=== PATIENT | female | born 1980 | race Caucasian/White ===

== ENCOUNTER 2017-02-09 12:12 | Emergency (ER) | payer OTHER ==
--- NOTE | 2017-02-09 13:07 | ERPHSYRPT ---
- History of Present Illness Time Seen by Provider: 02/09/17 13:03 Source: patient Patient Subjective Stated Complaint: HEADACHE, FEVER, SORE THROAT SINCE YESTERDAY Triage Nursing Assessment: AMBULATED TO ROOM PER SELF. STATES H/A, SORE THROAT AND COUGH SINCE YESTERDAY. TOOK MOTRIN TODAY WITH SOME RELIEF. Physician History: Pt. with temp. 100.2 F, sore throat, headache for 2 day. Taking ibuprofen with some relief. Also with dry cough, rhinorrhea, but no resp. difficulty. Son recently diagnosed with influenza B Timing/Duration: yesterday Cough Quality/Degree: mild, dry cough Possible Cause: occasional episodes Modifying Factors: Improves With: coughing (worsen) Associated Symptoms: fever, cough, nasal congestion, nasal drainage, sore throat , No shortness of breath International travel in last 2 weeks: No Allergies/Adverse Reactions: No Known Drug Allergies Allergy (Verified 02/09/17 12:31) Home Medications: Levothyroxine Sodium [Synthroid] 75 mcg PO DAILY 09/11/14 [History] Hx Tetanus, Diphtheria Vaccination/Date Given: No Hx Influenza Vaccination/Date Given: No Hx Pneumococcal Vaccination/Date Given: No Immunizations Up to Date: No - Review of Systems Constitutional: Fever, Malaise, No Chills Eyes: No Symptoms Ears, Nose, & Throat: Nose Congestion, Nose Discharge, Throat Pain Respiratory: Cough, No Dyspnea Cardiac: No Chest Pain, No Edema, No Syncope Abdominal/Gastrointestinal: No Abdominal Pain, No Nausea, No Vomiting, No Diarrhea Genitourinary Symptoms: No Dysuria Musculoskeletal: No Back Pain, No Neck Pain Skin: No Rash Neurological: No Dizziness, No Focal Weakness, No Sensory Changes Psychological: No Symptoms Endocrine: No Symptoms All Other Systems: Reviewed and Negative - Past Medical History Pertinent Past Medical History: Yes Neurological History: Migraines Endocrine Medical History: Hypothyroidism, Other Other Medical History: HYPOGLYCEMIA - Past Surgical History Past Surgical History: Yes Female Surgical History: Other Other Surgical History: D/C - Social History Smoking Status: Never smoker Exposure to second hand smoke: Yes Drug Use: none Patient Lives Alone: No - Female History Hx Last Menstrual Period: NOW - Nursing Vital Signs Nursing Vital Signs: Initial Vital Signs Temperature 99.2 F Temperature Source Oral Pulse Rate 98 Respiratory Rate 16 Blood Pressure [Right Arm] 114/74 Pain Intensity 4 - Physical Exam General Appearance: no apparent distress, alert Eye Exam: PERRL/EOMI, eyes nml inspection Ears, Nose, Throat Exam: normal ENT inspection, TMs normal, pharynx normal, moist mucous membranes, pharyngeal erythema Neck Exam: normal inspection, non-tender, supple, full range of motion Respiratory Exam: normal breath sounds, lungs clear, No respiratory distress Cardiovascular Exam: regular rate/rhythm, normal heart sounds Gastrointestinal/Abdomen Exam: soft, No tenderness Back Exam: normal inspection, No CVA tenderness, No vertebral tenderness Extremity Exam: normal inspection, normal range of motion Neurologic Exam: alert, 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, cooperative, normal mood/affect, sensation nml, No motor deficits Skin Exam: normal color, warm, dry, No rash Lymphatic Exam: No adenopathy SpO2: 99 Oxygen Delivery: Room Air - Progress Progress: improved Air Movement: good Counseled pt/family regarding: diagnosis - Departure Time of Disposition: 13:16 Departure Disposition: Home Clinical Impression: Viral syndrome Condition: Stable Critical Care Time: No Instructions: Headache, Viral Syndrome Additional Instructions: Motrin/Tylenol for OTC meds for fever/cough Encourage more fluids intake Return for worse fever, headache, sore throat, vomiting or any problems.
[2017-02-09 13:27] VITALS: BP 136/64; PULSE 89; O2SAT 100
== END 2017-02-09 13:27 | disposition home or self-care (01) ==
LOC: ED 12:12
DX: B34.9 Viral infection, unspecified (principal)
CPT/HCPCS: 99283

== ENCOUNTER 2019-01-23 17:30 | Emergency (ER) | payer OTHER ==
--- NOTE | 2019-01-23 18:01 | ERPHSYRPT ---
<MAGUE HARVEY PhillyJennifer - Last Filed: 01/23/19 20:54> - History of Present Illness Source: patient, other () Exam Limitations: no limitations Patient Subjective Stated Complaint: Pt states "A couple of hours ago my vision got really weird and the left side of my face went numb, my right arm with numb and my speech got slurred and I could not think straight." Triage Nursing Assessment: PT alert and oriented X 3, skin pwd Pt ambualtes with an upright steady gait, able to speak in full sentences, voice slightly slurred, left facial droop. Timing/Duration: hour(s) (3.5) Severity: severe Character of Deficits: altered sensation, impaired speech, Left Facial, RUE Baseline/Normal Cognition: alert 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 Current Cognition: alert 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 Baseline Gait: walks w/o assistance Associated Symptoms: slurred speech, vision changes Hx Tetanus, Diphtheria Vaccination/Date Given: Yes Hx Influenza Vaccination/Date Given: No Hx Pneumococcal Vaccination/Date Given: No Immunizations Up to Date: Yes <AC ARMENTA - Last Filed: 01/25/19 11:13> - History of Present Illness Time Seen by Provider: 01/23/19 17:40 Physician History: Pt and her state, they were watching TV at 14:30 PM, when she suddenly started c/o blurred vision, noticed her speech has changed, she became slurred, and she felt left facial and right arm numbness. She denies prior symptoms of headaches, chest pain, SOB, or dizziness, but she had mild generalized headaches afterward. She is able to ambulate without help, denies loss or vision or double vision, no severe headaches, naussea, vomiting, chest pain or otehr complaints. (AC ARMENTA) Allergies/Adverse Reactions: No Known Drug Allergies Allergy (Verified 02/09/17 12:31) Home Medications: Levothyroxine Sodium [Synthroid] 75 mcg PO DAILY 09/11/14 [History] - Review of Systems Constitutional: No Symptoms Eyes: Vision Changes Ears, Nose, & Throat: No Symptoms Respiratory: No Symptoms Cardiac: No Symptoms Abdominal/Gastrointestinal: No Symptoms Genitourinary Symptoms: No Symptoms Musculoskeletal: No Symptoms Skin: No Symptoms Neurological: Sensory Changes, Speech Changes Endocrine: No Symptoms All Other Systems: Reviewed and Negative <AC ARMENTA - Last Filed: 01/25/19 11:13> - Past Medical History Pertinent Past Medical History: Yes Neurological History: Migraines Endocrine Medical History: Hypothyroidism, Other Other Medical History: HYPOGLYCEMIA - Past Surgical History Past Surgical History: Yes Female Surgical History: Other Other Surgical History: D/C - Social History Smoking Status: Never smoker Exposure to second hand smoke: Yes Drug Use: none Patient Lives Alone: No - Female History Hx Last Menstrual Period: hysterectomy Hx Now: No <AC ARMENTA - Last Filed: 01/25/19 11:13> <MAGUE HARVEY PhillyJennifer - Last Filed: 01/23/19 20:54> - Alessia Coma Scale Best Eye Response ([place]): (4) open spontaneously Best Verbal Response ([place]): (5) oriented Best Motor Response (Alessia): (6) obeys commands [place] Total: 15 - Physical Exam General Appearance: no apparent distress Eye Exam: bilateral eye: PERRL, EOMI Ears, Nose, Throat Exam: normal ENT inspection, TMs normal, pharynx normal, moist mucous membranes Neck Exam: normal inspection, non-tender, supple, No carotid bruit, No JVD Respiratory: normal breath sounds, chest tenderness, lungs clear Cardiovascular: regular rate/rhythm, normal heart sounds, normal peripheral pulses, murmur Gastrointestinal: soft, normal bowel sounds, No tenderness Back Exam: normal inspection, No CVA tenderness, No vertebral tenderness, No rash Extremity Exam: normal inspection, No calf tenderness Peripheral Pulses: carotid (R): 3+, carotid (L): 3+, dorsalis-pedis (R): 3+, dorsalis-pedis (L): 3+ 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, 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, 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 Exam: normal hearing Coordination/Gait: normal finger to nose, normal gait, normal cerebellar function Motor/Sensory: no motor deficit DTR: bicep (R): 2+, bicep (L): 2+, tricep (R): 2+, tricep (L): 2+, knee (R): 2+ , knee (L): 2+, ankle (R): 2+, ankle (L): 2+ Skin Exam: normal color, warm, dry, No rash SpO2 Interpretation: normal SpO2: 100 O2 Delivery: Room Air <AC ARMENTA - Last Filed: 01/25/19 11:13> - Nursing Vital Signs Nursing Vital Signs: Initial Vital Signs Temperature 98.2 F 01/23/19 17:37 Pulse Rate 72 01/23/19 17:37 Respiratory Rate 18 01/23/19 17:37 Blood Pressure 133/68 01/23/19 17:37 O2 Sat by Pulse Oximetry 100 01/23/19 17:37 Pain Scale Pain Intensity 2 - Physical Exam Comments: NIH scale: 3. facial palsy, left facial sensory, dysarthria (AC ARMENTA) - Course Nursing assessment & vital signs reviewed: Yes EKG Interpreted by Me: RATE (63/min), NORMAL AXIS, NORMAL INTERVALS, NORMAL QRS , Non-specific ST Changes - CT Exams Head CT Interpretation: Negative, Tele-radiologist Report <AC ARMENTA - Last Filed: 01/25/19 11:13> Ordered Tests: Medication Summary Discontinued Medications Generic Name Dose Route Start Last Admin Trade Name Andreina PRN Reason Stop Dose Admin Aspirin 325 mg 01/23/19 19:53 01/23/19 20:11 Ecotrin 325 Mg PO 01/23/19 19:54 325 mg STAT ONE Administration Simvastatin 80 mg 01/24/19 10:00 01/23/19 20:11 Zocor 10mg PO 02/23/19 09:59 80 mg DAILY PAULA Administration Simvastatin Confirm 01/23/19 20:08 Zocor 10mg Administered 01/23/19 20:09 Dose 80 mg .ROUTE .[facility] ONE Lab/Rad Data: Laboratory Result Diagrams 01/23/19 18:24 01/23/19 18:24 Laboratory Results 01/23/19 01/23/19 01/23/19 Range/Units 19:34 19:34 18:24 WBC (4.0-10.5) K/mm3 RBC (4.1-5.4) M/mm3 Hgb (12.0-16.0) gm/dl Hct (35-47) % MCV (78-100) fl MCH (26-32) pg MCHC (32-36) g/dl RDW (11.5-14.0) % Plt Count (150-450) K/mm3 MPV (6-9.5) fl Gran % (36.0-66.0) % Eos # (Auto) (0-0.5) Absolute Lymphs (auto) (1.0-4.6) Absolute Monos (auto) (0.0-1.3) Lymphocytes % (24.0-44.0) % Monocytes % (0.0-12.0) % Eosinophils % (0.00-5.0) % Basophils % (0.0-0.4) % Absolute Granulocytes (1.4-6.9) Basophils # (0-0.4) ESR (0-20) mm/hr PT (9.95-12.35) SECONDS INR (0.8-3.0) APTT (25.3-37.0) SECONDS Sodium (137-145) mmol/L Potassium (3.5-5.1) mmol/L Chloride (98-107) mmol/L Carbon Dioxide (22-30) mmol/L Anion Gap (5-15) MEQ/L BUN (7-17) mg/dL Creatinine (0.52-1.04) mg/dL Estimated GFR ML/MIN Glucose (74-106) mg/dL Calcium (8.4-10.2) mg/dL Magnesium (1.6-2.3) mg/dL Total Bilirubin (0.2-1.3) mg/dL AST (14-36) U/L ALT (0-35) U/L Alkaline Phosphatase (38-126) U/L Creatine Kinase (30-135) U/L Troponin I < 0.012 (0.000-0.034) ng/mL Serum Total Protein (6.3-8.2) g/dL Albumin (3.5-5.0) g/dL Urine Color YELLOW (YELLOW) Urine Appearance CLOUDY (CLEAR) Urine pH 7.0 (5-6) Ur Specific [place] 1.026 (1.005-1.025) Urine Protein NEGATIVE (Negative) Urine Ketones TRACE (NEGATIVE) Urine Blood NEGATIVE (0-5) Bakari/ul Urine Nitrite NEGATIVE (NEGATIVE) Urine Bilirubin NEGATIVE (NEGATIVE) Urine Urobilinogen NEGATIVE (0-1) mg/dL Ur Leukocyte Esterase NEGATIVE (NEGATIVE) Urine WBC (Auto) 3-5 (0-5) /HPF Urine RBC (Auto) 0-2 (0-2) /HPF U Epithel Cells (Auto) NONE (FEW) /HPF Urine Bacteria (Auto) NONE (NEGATIVE) /HPF Unidentified Crystals 25-50 (NEGATIVE) /HPF Amorphous Crystals FEW (NEGATIVE) /HPF Urine Mucus (Auto) MODERATE (NEGATIVE) /HPF Urine Culture Reflexed NO (NO) Urine Glucose NEGATIVE (NEGATIVE) mg/dL Urine Opiates Level NEGATIVE (NEGATIVE) Ur Methadone NEGATIVE (NEGATIVE) Urine Barbiturates NEGATIVE (NEGATIVE) Ur Phencyclidine (PCP) NEGATIVE (NEGATIVE) Urine Amphetamine NEGATIVE (NEGATIVE) U Benzodiazepine Level NEGATIVE (NEGATIVE) Urine Cocaine NEGATIVE (NEGATIVE) Urine Marijuana (THC) NEGATIVE (NEGATIVE) 01/23/19 01/23/19 01/23/19 Range/Units 18:24 18:24 18:24 WBC (4.0-10.5) K/mm3 RBC (4.1-5.4) M/mm3 Hgb (12.0-16.0) gm/dl Hct (35-47) % MCV (78-100) fl MCH (26-32) pg MCHC (32-36) g/dl RDW (11.5-14.0) % Plt Count (150-450) K/mm3 MPV (6-9.5) fl Gran % (36.0-66.0) % Eos # (Auto) (0-0.5) Absolute Lymphs (auto) (1.0-4.6) Absolute Monos (auto) (0.0-1.3) Lymphocytes % (24.0-44.0) % Monocytes % (0.0-12.0) % Eosinophils % (0.00-5.0) % Basophils % (0.0-0.4) % Absolute Granulocytes (1.4-6.9) Basophils # (0-0.4) ESR 5 (0-20) mm/hr PT 11.4 (9.95-12.35) SECONDS INR 0.98 (0.8-3.0) APTT 27.5 (25.3-37.0) SECONDS Sodium 142 (137-145) mmol/L Potassium 4.3 (3.5-5.1) mmol/L Chloride 107 (98-107) mmol/L Carbon Dioxide 24 (22-30) mmol/L Anion Gap 14.9 (5-15) MEQ/L BUN 13 (7-17) mg/dL Creatinine 0.94 (0.52-1.04) mg/dL Estimated GFR > 60.0 ML/MIN Glucose 96 (74-106) mg/dL Calcium 9.7 (8.4-10.2) mg/dL Magnesium 2.2 (1.6-2.3) mg/dL Total Bilirubin 0.50 (0.2-1.3) mg/dL AST 17 (14-36) U/L ALT 11 (0-35) U/L Alkaline Phosphatase 64 (38-126) U/L Creatine Kinase 45 (30-135) U/L Troponin I (0.000-0.034) ng/mL Serum Total Protein 8.0 (6.3-8.2) g/dL Albumin 4.5 (3.5-5.0) g/dL Urine Color (YELLOW) Urine Appearance (CLEAR) Urine pH (5-6) Ur Specific [place] (1.005-1.025) Urine Protein (Negative) Urine Ketones (NEGATIVE) Urine Blood (0-5) Bakari/ul Urine Nitrite (NEGATIVE) Urine Bilirubin (NEGATIVE) Urine Urobilinogen (0-1) mg/dL Ur Leukocyte Esterase (NEGATIVE) Urine WBC (Auto) (0-5) /HPF Urine RBC (Auto) (0-2) /HPF U Epithel Cells (Auto) (FEW) /HPF Urine Bacteria (Auto) (NEGATIVE) /HPF Unidentified Crystals (NEGATIVE) /HPF Amorphous Crystals (NEGATIVE) /HPF Urine Mucus (Auto) (NEGATIVE) /HPF Urine Culture Reflexed (NO) Urine Glucose (NEGATIVE) mg/dL Urine Opiates Level (NEGATIVE) Ur Methadone (NEGATIVE) Urine Barbiturates (NEGATIVE) Ur Phencyclidine (PCP) (NEGATIVE) Urine Amphetamine (NEGATIVE) U Benzodiazepine Level (NEGATIVE) Urine Cocaine (NEGATIVE) Urine Marijuana (THC) (NEGATIVE) 01/23/19 Range/Units 18:24 WBC 6.2 (4.0-10.5) K/mm3 RBC 4.77 (4.1-5.4) M/mm3 Hgb 14.9 (12.0-16.0) gm/dl Hct 43.4 (35-47) % MCV 91.0 (78-100) fl MCH 31.2 (26-32) pg MCHC 34.3 (32-36) g/dl RDW 13.0 (11.5-14.0) % Plt Count 198 (150-450) K/mm3 MPV 11.6 H (6-9.5) fl Gran % 63.7 (36.0-66.0) % Eos # (Auto) 0.11 (0-0.5) Absolute Lymphs (auto) 1.66 (1.0-4.6) Absolute Monos (auto) 0.44 (0.0-1.3) Lymphocytes % 27.0 (24.0-44.0) % Monocytes % 7.2 (0.0-12.0) % Eosinophils % 1.8 (0.00-5.0) % Basophils % 0.3 (0.0-0.4) % Absolute Granulocytes 3.92 (1.4-6.9) Basophils # 0.02 (0-0.4) ESR (0-20) mm/hr PT (9.95-12.35) SECONDS INR (0.8-3.0) APTT (25.3-37.0) SECONDS Sodium (137-145) mmol/L Potassium (3.5-5.1) mmol/L Chloride (98-107) mmol/L Carbon Dioxide (22-30) mmol/L Anion Gap (5-15) MEQ/L BUN (7-17) mg/dL Creatinine (0.52-1.04) mg/dL Estimated GFR ML/MIN Glucose (74-106) mg/dL Calcium (8.4-10.2) mg/dL Magnesium (1.6-2.3) mg/dL Total Bilirubin (0.2-1.3) mg/dL AST (14-36) U/L ALT (0-35) U/L Alkaline Phosphatase (38-126) U/L Creatine Kinase (30-135) U/L Troponin I (0.000-0.034) ng/mL Serum Total Protein (6.3-8.2) g/dL Albumin (3.5-5.0) g/dL Urine Color (YELLOW) Urine Appearance (CLEAR) Urine pH (5-6) Ur Specific [place] (1.005-1.025) Urine Protein (Negative) Urine Ketones (NEGATIVE) Urine Blood (0-5) Bakari/ul Urine Nitrite (NEGATIVE) Urine Bilirubin (NEGATIVE) Urine Urobilinogen (0-1) mg/dL Ur Leukocyte Esterase (NEGATIVE) Urine WBC (Auto) (0-5) /HPF Urine RBC (Auto) (0-2) /HPF U Epithel Cells (Auto) (FEW) /HPF Urine Bacteria (Auto) (NEGATIVE) /HPF Unidentified Crystals (NEGATIVE) /HPF Amorphous Crystals (NEGATIVE) /HPF Urine Mucus (Auto) (NEGATIVE) /HPF Urine Culture Reflexed (NO) Urine Glucose (NEGATIVE) mg/dL Urine Opiates Level (NEGATIVE) Ur Methadone (NEGATIVE) Urine Barbiturates (NEGATIVE) Ur Phencyclidine (PCP) (NEGATIVE) Urine Amphetamine (NEGATIVE) U Benzodiazepine Level (NEGATIVE) Urine Cocaine (NEGATIVE) Urine Marijuana (THC) (NEGATIVE) - Progress Progress: re-examined Counseled pt/family regarding: lab results, diagnosis, need for follow-up, rad results <MAGUE HARVEY - Last Filed: 01/23/19 20:54> - Progress Progress: improved <AC ARMENTA - Last Filed: 01/25/19 11:13> - Progress Progress Note: 01/23/19 20:54 assumed care of this pt at 1900. i reexamined pt and sx improving. cta head and neck negative. followed dr. roopa farley teleradiologist. no tpa recommended. per her instructions, gave full asa and 80mg zocor(our substitute) . at 2044 i reviewed pt hx, condition, lab and xray results with [facility] hospitalist dr. sparks. he accepts pt in transfer into stroke unit. 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 Case was discussed in details with Dr Harvey, he will follow up the results. (AC ARMENTA) - Departure Departure Disposition: Transfer Critical Care Time: Yes Critical Care Time(excluding separately billable procedures): 30-74 minutes <MAGUE HARVEY - Last Filed: 01/23/19 20:54> - Departure Departure Disposition: Transfer Critical Care Time: Yes Critical Care Time(excluding separately billable procedures): 30-74 minutes <AC ARMENTA - Last Filed: 01/25/19 11:13> - Departure Clinical Impression: CVA (cerebral vascular accident) Qualifiers: CVA mechanism: unspecified Qualified Code(s): I63.9 - Cerebral infarction, unspecified Condition: Stable Referrals: YAMINI CRUZ [Primary Care Provider] -
[2019-01-23 18:32] LABS: BASOPHIL % 0.3 % (0.0-0.4); Basophil (Absolute #) 0.02 (0-0.4); Eosinophil % 1.8 % (0.00-5.0); Eosinophil (Absolute #) 0.11 (0-0.5); Granulocyte Absolute (ANC) 3.92 (1.4-6.9); Granulocytes % 63.7 % (36.0-66.0); Hematocrit 43.4 % (35-47); Hemoglobin 14.9 gm/dl (12.0-16.0); Lymphocyte (Absolute #) 1.66 (1.0-4.6); Mean Corpuscular Hemoglobin 31.2 pg (26-32); Mean Corpuscular Hgb Concent. 34.3 g/dl (32-36); Mean Platelet Volume 11.6 fl (6-9.5); Monocyte (Absolute #) 0.44 (0.0-1.3); Monocytes % 7.2 % (0.0-12.0); Platelet Count 198 K/mm3 (150-450); Red Blood Count 4.77 M/mm3 (4.1-5.4); White Blood Count 6.2 K/mm3 (4.0-10.5)
[2019-01-23 18:34] LABS: INR 0.98 (0.8-3.0); PROTIME 11.4 SECONDS (9.95-12.35)
[2019-01-23 18:37] LABS: PTT 27.5 SECONDS (25.3-37.0)
[2019-01-23 18:39] LABS: ALBUMIN 4.5 g/dL (3.5-5.0); ALKALINE PHOSPHATASE 64 U/L (38-126); ANION GAP 14.9 MEQ/L (5-15); BLOOD UREA NITROGEN 13 mg/dL (7-17); CHLORIDE 107 mmol/L (98-107); CK-Creatinine Phosphokinase 45 U/L (30-135); Calcium 9.7 mg/dL (8.4-10.2); Carbon Dioxide 24 mmol/L (22-30); Creatinine 1 0.94 mg/dL (0.52-1.04); Glucose 96 mg/dL (74-106); MAGNESIUM 2.2 mg/dL (1.6-2.3); Potassium 4.3 mmol/L (3.5-5.1); SGOT/AST 17 U/L (14-36); SGPT/ALT 11 U/L (0-35); SODIUM 142 mmol/L (137-145)
[2019-01-23] MEDS ORDERED: Ecotrin 325 MG PO ONE (19:53)
[2019-01-23 19:55] LABS: Amphetamine,Urine NEGATIVE (NEGATIVE); Barbiturate,Urine NEGATIVE (NEGATIVE); Benzodiazepine,Urine NEGATIVE (NEGATIVE); Cocaine,Urine NEGATIVE (NEGATIVE); Methadone,Urine NEGATIVE (NEGATIVE); Opiate,Urine NEGATIVE (NEGATIVE); PCP,Urine NEGATIVE (NEGATIVE); THC,Urine NEGATIVE (NEGATIVE)
[2019-01-23 19:56] LABS: Amourphous Crystal FEW /HPF (NEGATIVE); Appearance CLOUDY (CLEAR); Bilirubin NEGATIVE (NEGATIVE); Blood NEGATIVE Ery/ul (0-5); Crystals Unidentified 25-50 /HPF (NEGATIVE); Glucose NEGATIVE (NEGATIVE); Ketones TRACE (NEGATIVE); Leukocyte Esterase NEGATIVE (NEGATIVE); Mucus MODERATE /HPF (NEGATIVE); Nitrite NEGATIVE (NEGATIVE); Protein,Urine Dip NEGATIVE (Negative); RBC 0-2 /HPF (0-2); Specific Gravity 1.026 (1.005-1.025); Urobilinogen NEGATIVE mg/dL (0-1)
[2019-01-23] MEDS ORDERED: Zocor 10MG ONE (20:08)
--- NOTE | 2019-01-23 20:22 | XRAY ---
Indication: Left facial numbness and headache. Possible stroke. Multiple contiguous axial images obtained through the head without contrast. Comparison: April 22, 2016. Again normal appearing brain parenchyma, ventricles, and bony calvarium. Visualized paranasal sinuses and mastoid air cells are clear. Impression: Stable normal CT head without contrast exam. Comment: Preliminary interpretation was made by [facility]. No discrepancy. CTDI 67.60
--- NOTE | 2019-01-23 20:22 | XRAY ---
Indication: Headache and left facial numbness. Possible stroke. Comparison: None Portable chest demonstrates normal heart, lungs, and bony thorax.
[2019-01-23 21:52] VITALS: BP 119/64; PULSE 65
--- NOTE | 2019-01-24 07:51 | XRAY ---
Indication: Left facial numbness. Headache. Possible stroke. Conventional contrast enhanced CTA neck was performed using 80 cc of Isovue 370 contrast. Sagittal and coronal reformatted images obtained. Comparison: None Visualized aortic arch is normal in course and caliber with normal patent branching right brachiocephalic, left common carotid, and left subclavian arteries. Examination of the right carotid circulation demonstrates widely patent common carotid, bulb, external carotid, and internal carotid arteries. Examination of the left carotid circulation demonstrates normal CTA appearance to the common carotid, bulb, external carotid, and internal carotid arteries. Posterior circulation demonstrates bilaterally symmetric vertebral arteries without critical stenosis, obstruction, or AV malformation. Venous drainage normal. Visualized cervical spine intact. Supra and infraglottic airway widely patent. Minimally heterogeneous thyroid gland. No pathologic lymphadenopathy. A few bilateral dental amalgams produces beam artifact. Impression: Normal CTA neck. Comment: Preliminary interpretation was made by [facility]. No discrepancy. CTDI 36.68
[2019-01-24] MEDS ORDERED: Zocor 10MG PO SCH (10:00)
[2019-01-25 11:13] VITALS: O2SAT 100
--- NOTE | 2019-01-25 15:07 | XRAY ---
Indication: Left facial numbness. Headache. Possible stroke. Conventional contrast enhanced CTA [place] was performed using 80 cc of Isovue 370 contrast. Sagittal and coronal reformatted images obtained. Comparison: None Distal internal carotid arteries are bilaterally symmetric without critical stenosis, obstruction, or AV malformation. Normal carotid terminus with normal branching anterior and middle cerebral arteries bilaterally. More distal anterior cerebral and middle cerebral arteries including anterior/posterior communicating arteries are normal in CTA appearance. Examination of the posterior circulation demonstrates basilar artery normal in course and caliber. Normal branching superior cerebellar and anterior-inferior cerebellar arteries laterally. Posterior cerebral arteries unremarkable. Visualized brain parenchyma negative for abnormal enhancing intra-or extra-axial mass. Venous drainage unremarkable. Impression: Normal CTA [place]. Comment: Preliminary interpretation was made by [facility]. No discrepancy. CTDI 36.68
== END 2019-01-23 21:43 | disposition short-term general hospital (02) ==
LOC: ED 17:30
DX: I63.9 Cerebral infarction, unspecified (principal); E03.9 Hypothyroidism, unspecified
CPT/HCPCS: 36000; 36415; 70450; 70496; 70498; 71045; 80053; 80307; 81001; 82550; 82962; 83735; 84484; 85025; 85610; 85652; 85730; 93005; 99285; A9270-GY

== ENCOUNTER 2019-01-26 11:54 | Emergency (ER) | payer OTHER ==
--- NOTE | 2019-01-26 12:24 | ERPHSYRPT ---
- History of Present Illness Time Seen by Provider: 01/26/19 12:20 Source: patient Exam Limitations: no limitations Patient Subjective Stated Complaint: PT states "I was here a couple of days ago and was told I had a minor stroke, I was transferred to [facility] and they did absolutely nothing for me. Last night I had a head ache and I went to bed and this morning when I woke up, I had some droop to my right eye this time. " Triage Nursing Assessment: Pt alert and and oriented X 3, skin pwd. Pt still has some facial weakness noted to the left, no right side deficit noted at this time. Pt in no apparent respiratory distress. Physician History: 38-year-old white female with history of migraines, hyperthyroidism, hypoglycemia Arrives with complaint that she was experiencing right facial droop at approximately 9:00 this morning she states she's not sure if she woke up with this or not. She apparently had been in the emergency room on January 23, 2019 with left facial droop and right arm weakness. She apparently had a head CT was evaluated by [facility]ial[facility] and neurology and referred to [facility]. She apparently was evaluated at [facility] she states she was placed on aspirin and sent home. She states she had the above symptoms this morning she contacted her nurse practitioner who asked her to present to the emergency room. Past medical history includes migraines, hypothyroidism, hypoglycemia. Past surgical history includes D&C and hysterectomy. Timing/Duration: other (similar symptoms January 23 woke up this and took a shower noted symptoms at 9 AM) Severity: mild Modifying Factors: Improves With: nothing Associated Symptoms: headaches, No nausea, No vomiting, No abdominal pain, No shortness of breath, No heartburn, No diaphoresis, No cough, No chills, No chest pain, No fever, No loss of appetite, No malaise, No rash, No syncope, No seizure, No weakness Allergies/Adverse Reactions: No Known Drug Allergies Allergy (Verified 02/09/17 12:31) Home Medications: Levothyroxine Sodium [Synthroid] 75 mcg PO DAILY 09/11/14 [History] Aspirin EC 81 mg [Ecotrin 81 mg] 81 mg PO DAILY 01/26/19 [History] Hx Tetanus, Diphtheria Vaccination/Date Given: Yes Hx Influenza Vaccination/Date Given: No Hx Pneumococcal Vaccination/Date Given: No Immunizations Up to Date: Yes - Review of Systems Constitutional: No Fever, No Chills Eyes: No Symptoms Ears, Nose, & Throat: No Symptoms Respiratory: No Cough, No Dyspnea Cardiac: No Chest Pain, No Edema, No Syncope Abdominal/Gastrointestinal: No Abdominal Pain, No Nausea, No Vomiting, No Diarrhea Genitourinary Symptoms: No Dysuria Musculoskeletal: No Back Pain, No Neck Pain Skin: No Rash Neurological: Focal Weakness (patient felt like she had right facial weakness this morning), Headache Psychological: No Symptoms Endocrine: No Symptoms All Other Systems: Reviewed and Negative - Past Medical History Pertinent Past Medical History: Yes Neurological History: Migraines Endocrine Medical History: Hypothyroidism, Other Other Medical History: HYPOGLYCEMIA - Past Surgical History Past Surgical History: Yes Female Surgical History: Other Other Surgical History: D/C - Social History Smoking Status: Never smoker Exposure to second hand smoke: No Drug Use: none Patient Lives Alone: No - Female History Hx Last Menstrual Period: hysterectomy Hx Now: No - Nursing Vital Signs Nursing Vital Signs: Initial Vital Signs Temperature 98.1 F 01/26/19 12:04 Pulse Rate 66 01/26/19 12:04 Respiratory Rate 16 01/26/19 12:04 Blood Pressure 124/80 01/26/19 12:04 O2 Sat by Pulse Oximetry 100 01/26/19 12:04 Pain Scale Pain Intensity 0 - Physical Exam General Appearance: no apparent distress, alert Eye Exam: PERRL/EOMI, eyes nml inspection Ears, Nose, Throat Exam: normal ENT inspection, TMs normal, pharynx normal, moist mucous membranes Neck Exam: normal inspection, non-tender, supple, full range of motion Respiratory Exam: normal breath sounds, lungs clear, No respiratory distress Cardiovascular Exam: regular rate/rhythm, normal heart sounds, normal peripheral pulses, capillary refill <2 sec Gastrointestinal/Abdomen Exam: soft, normal bowel sounds, No tenderness, No mass Back Exam: normal inspection, normal range of motion, No CVA tenderness, No vertebral tenderness Extremity Exam: normal inspection, normal range of motion, pelvis stable Neurologic Exam: alert, 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, cooperative, patient care provider II-XII nml as tested, normal mood/affect, nml cerebellar function, nml station & gait, sensation nml, other (Patient is alert, oriented 3, cranial nerves II through XII intact, no facial droop, normal speech, normal finger to nose no 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 equal 5 over 5 sensation intact to all extremities), No motor deficits, No sensory deficit, No disoriented, No confusion, No facial droop, No slurred speech, No aphasia, No dysarthria, No abnormal gait, No abnormal cerebellar tests Skin Exam: normal color, warm, dry, No rash Lymphatic Exam: No adenopathy SpO2 Interpretation: normal (100%) SpO2: 100 - Course Nursing assessment & vital signs reviewed: Yes EKG Interpreted by Me: RATE (80 bpm), Sinus Rhythm, NORMAL AXIS, Other (EKG: Sinus rhythm, 60 bpm, normal axis, no acute ST or T wave changes, essentially normal EKG) Ordered Tests: Active Orders 24 hr Category Date Time Status Accucheck STAT Care 01/26/19 12:19 Active EKG-ER Only STAT Care 01/26/19 12:19 Active IV Insertion STAT Care 01/26/19 12:19 Active HEAD WITHOUT CONTRAST [CT] Stat Exams 01/26/19 12:19 Completed BMP Stat Lab 01/26/19 12:50 Completed CBC W DIFF Stat Lab 01/26/19 12:50 Completed Lab/Rad Data: Laboratory Result Diagrams 01/26/19 12:50 01/26/19 12:50 Laboratory Results 01/26/19 01/26/19 Range/Units 12:50 12:50 WBC 5.3 (4.0-10.5) K/mm3 RBC 4.78 (4.1-5.4) M/mm3 Hgb 14.8 (12.0-16.0) gm/dl Hct 44.2 (35-47) % MCV 92.5 (78-100) fl MCH 31.0 (26-32) pg MCHC 33.5 (32-36) g/dl RDW 12.9 (11.5-14.0) % Plt Count 204 (150-450) K/mm3 MPV 11.5 H (6-9.5) fl Gran % 64.8 (36.0-66.0) % Eos # (Auto) 0.08 (0-0.5) Absolute Lymphs (auto) 1.40 (1.0-4.6) Absolute Monos (auto) 0.39 (0.0-1.3) Lymphocytes % 26.2 (24.0-44.0) % Monocytes % 7.3 (0.0-12.0) % Eosinophils % 1.5 (0.00-5.0) % Basophils % 0.2 (0.0-0.4) % Absolute Granulocytes 3.46 (1.4-6.9) Basophils # 0.01 (0-0.4) Sodium 142 (137-145) mmol/L Potassium 4.4 (3.5-5.1) mmol/L Chloride 108 H (98-107) mmol/L Carbon Dioxide 25 (22-30) mmol/L Anion Gap 13.0 (5-15) MEQ/L BUN 12 (7-17) mg/dL Creatinine 0.84 (0.52-1.04) mg/dL Estimated GFR > 60.0 ML/MIN Glucose 90 (74-106) mg/dL Calcium 9.9 (8.4-10.2) mg/dL - Progress Progress: improved Progress Note: 01/26/19 14:48 38-year-old white female arrives with complaints of right facial droop which occurred at approximately 9:00 this morning. This had been essentially resolved by the time she arrived here in the emergency room. Patient does have a history of migraines, hyperthyroidism, hypoglycemia. Patient with normal neurologic exam on arrival. Patient with head CT obtained today which shows normal head CT without contrast. Patient had been seen in this emergency room on January 23, 2019 for complaints of left facial droop and right arm weakness. She had an essentially normal head CT at that time she was transferred to [facility] where she had an MRI and was discharged with aspirin. Patient is evaluated today through tele-neurology consult with Dr. Edwin Pineda reviewed the patient's labs and examined the patient through tele- neuro and also reviewed patient's MRI from several days ago performed at [place]. She felt that the patient could be discharged patient is to stop taking her aspirin. She is advised to follow-up with neurologist for evaluation of possible migraines. Will go ahead and discharge patient. Patient plans to follow-up with her family doctor. Patient is to return for acute distress severe symptoms or for any problems. - Departure Departure Disposition: Home Clinical Impression: right facial droop, Rule out atypical migraine Headache Qualifiers: Headache type: unspecified Headache chronicity pattern: unspecified pattern Intractability: not intractable Qualified Code(s): R51 - Headache Condition: Fair Critical Care Time: No Referrals: YAMINI CRUZ [Primary Care Provider] - Additional Instructions: Return home. Stop aspirin. Follow-up with your neurologist or your family doctor. Return for acute distress or severe symptoms or for any problems.
[2019-01-26 12:51] LABS: BASOPHIL % 0.2 % (0.0-0.4); Basophil (Absolute #) 0.01 (0-0.4); Eosinophil % 1.5 % (0.00-5.0); Eosinophil (Absolute #) 0.08 (0-0.5); Granulocyte Absolute (ANC) 3.46 (1.4-6.9); Granulocytes % 64.8 % (36.0-66.0); Hematocrit 44.2 % (35-47); Hemoglobin 14.8 gm/dl (12.0-16.0); Lymphocytes % 26.2 % (24.0-44.0); Mean Cell Volume 92.5 fl (78-100); Mean Corpuscular Hgb Concent. 33.5 g/dl (32-36); Mean Platelet Volume 11.5 fl (6-9.5); Monocyte (Absolute #) 0.39 (0.0-1.3); Monocytes % 7.3 % (0.0-12.0); Platelet Count 204 K/mm3 (150-450); Red Blood Count 4.78 M/mm3 (4.1-5.4); Red Cell Distribution Width 12.9 % (11.5-14.0); White Blood Count 5.3 K/mm3 (4.0-10.5)
--- NOTE | 2019-01-26 12:51 | XRAY ---
Indication: Right facial droop. Headache. Multiple contiguous axial images obtained through the head without contrast. Comparison: January 23, 2019. Again normal appearing brain parenchyma, ventricles, and bony calvarium. Visualized paranasal sinuses and mastoid air cells are clear. Impression: Stable normal CT head without contrast exam. MRI may yield further information if there remains continued clinical concern. CT DI 70.91
[2019-01-26 13:06] LABS: BLOOD UREA NITROGEN 12 mg/dL (7-17); CHLORIDE 108 mmol/L (98-107); Calcium 9.9 mg/dL (8.4-10.2); Carbon Dioxide 25 mmol/L (22-30); Creatinine 1 0.84 mg/dL (0.52-1.04); Glucose 90 mg/dL (74-106); Potassium 4.4 mmol/L (3.5-5.1); SODIUM 142 mmol/L (137-145)
[2019-01-26 13:31] VITALS: PULSE 65
[2019-01-26 14:43] VITALS: BP 116/69; O2SAT 100
== END 2019-01-26 15:10 | disposition home or self-care (01) ==
LOC: ED 11:54
DX: R29.810 Facial weakness (principal); R51 Headache; E03.9 Hypothyroidism, unspecified; E05.90 Thyrotoxicosis, unspecified without thyrotoxic crisis or storm; Z79.899 Other long term (current) drug therapy
CPT/HCPCS: 36000; 36415; 70450; 80048; 82962; 85025; 93005; 99284

== ENCOUNTER 2019-07-08 04:48 | Emergency (ER) | payer OTHER ==
[2019-07-08 04:57] VITALS: O2SAT 97
[2019-07-08] MEDS ORDERED: Hydromorphone 1 mg/ml Ampule IM ONE (05:21)
--- NOTE | 2019-07-08 05:21 | ERPHSYRPT ---
- History of Present Illness Time Seen by Provider: 07/08/19 05:10 Source: patient, family Exam Limitations: no limitations Patient Subjective Stated Complaint: pt states, "Woke up at 0130 with head pain to back of head, vomited x1, nausea." Triage Nursing Assessment: pt alert and oriented x3, c/o migraine headache to back of head on right side. started at 0130, throbbing and sharp, vomited x1 at home and x1 in er. lungs clear, heart tones reg, abd soft with active bsx 4 quad, nontender. Physician History: 39 y/o white female with h/o migraine headaches presents with her typical migraine headache of relatively sudden onset at 0130. pt has not had migraines in a long time. however, in last 3 months, more frequent. she does not have any home tx. had 2 episodes of vomiting. has light sensitivity. Timing/Duration: today Quality: aching, pressure, stabbing Head Pain Location: global Severity of Pain-Max: moderate Severity of Pain-Current: moderate Recent Head Trauma: no recent headache/trauma Modifying Factors: Improves With: exposure to light, noise Associated Symptoms: nausea/vomiting, sensitive to light Previous symptoms: same symptoms as today (rarely until last few months) Allergies/Adverse Reactions: No Known Drug Allergies Allergy (Verified 02/09/17 12:31) Home Medications: Levothyroxine Sodium [Synthroid] 100 mcg PO DAILY 09/11/14 [History] Buspirone HCl 5 mg [Buspar 5 mg] 5 mg PO DAILY 07/08/19 [History] Hx Tetanus, Diphtheria Vaccination/Date Given: Yes Hx Influenza Vaccination/Date Given: No Hx Pneumococcal Vaccination/Date Given: No Immunizations Up to Date: Yes - Review of Systems Constitutional: No Symptoms Eyes: No Symptoms Ears, Nose, & Throat: No Symptoms Respiratory: No Symptoms Cardiac: No Symptoms Abdominal/Gastrointestinal: Nausea, Vomiting Genitourinary Symptoms: No Symptoms Musculoskeletal: No Symptoms Skin: No Symptoms Neurological: No Symptoms Psychological: No Symptoms Endocrine: No Symptoms Hematologic/Lymphatic: No Symptoms Immunological/Allergic: No Symptoms All Other Systems: Reviewed and Negative - Past Medical History Pertinent Past Medical History: Yes Neurological History: Migraines ENT History: No Pertinent History Cardiac History: No Pertinent History Respiratory History: No Pertinent History Endocrine Medical History: Hypothyroidism, Other Musculoskeletal History: No Pertinent History GI Medical History: No Pertinent History History: No Pertinent History Psycho-Social History: No Pertinent History Female Reproductive Disorders: No Pertinent History Other Medical History: HYPOGLYCEMIA - Past Surgical History Past Surgical History: Yes Neuro Surgical History: No Pertinent History Cardiac: No Pertinent History Respiratory: No Pertinent History Gastrointestinal: No Pertinent History Genitourinary: No Pertinent History Musculoskeletal: No Pertinent History Female Surgical History: Hysterectomy, Other Other Surgical History: D/C - Social History Smoking Status: Never smoker Exposure to second hand smoke: Yes Drug Use: none Patient Lives Alone: No - Female History Hx Now: No - Nursing Vital Signs Nursing Vital Signs: Initial Vital Signs Temperature 98.2 F 07/08/19 04:55 Pulse Rate 77 07/08/19 04:55 Respiratory Rate 17 07/08/19 04:55 Blood Pressure 130/62 07/08/19 04:55 O2 Sat by Pulse Oximetry 97 07/08/19 04:55 Pain Scale Pain Intensity 10 - Physical Exam General Appearance: mild distress, alert, anxiety Eye Exam: PERRL/EOMI, eyes nml inspection Ears, Nose, Throat Exam: normal ENT inspection, moist mucous membranes Neck Exam: normal inspection, non-tender, supple, full range of motion Respiratory Exam: normal breath sounds, lungs clear, airway intact, No chest tenderness, No respiratory distress Gastrointestinal/Abdominal Exam: No tenderness Extremity Exam: normal inspection, normal range of motion, pelvis stable Mental Status Exam: alert, 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, 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: normal hearing, normal speech, PERRL, tongue midline Motor/Sensory Exam: no motor deficit, no sensory deficit Skin Exam: normal color, warm, dry Lymphatic Exam: No adenopathy SpO2 Interpretation: normal SpO2: 97 O2 Delivery: Room Air - Course Nursing assessment & vital signs reviewed: Yes Ordered Tests: Medication Summary Discontinued Medications Generic Name Dose Route Start Last Admin Trade Name Freq PRN Reason Stop Dose Admin Hydromorphone HCl 1 mg 07/08/19 05:21 07/08/19 05:27 Hydromorphone 1 Mg/Ml Ampule IM 07/08/19 05:22 1 mg STAT ONE Administration Hydromorphone HCl Confirm 07/08/19 05:25 Hydromorphone 1 Mg/Ml Ampule Administered 07/08/19 05:26 Dose 1 mg .ROUTE .STK-MED ONE Promethazine HCl 25 mg 07/08/19 05:22 07/08/19 05:26 Phenergan 25 Mg Inj IM 07/08/19 05:23 25 mg STAT ONE Administration Promethazine HCl Confirm 07/08/19 05:24 Phenergan 25 Mg Inj Administered 07/08/19 05:25 Dose 25 mg .ROUTE .STK-MED ONE - Progress Progress: improved Air Movement: good Blood Culture(s) Obtained: No Antibiotics given: No Counseled pt/family regarding: diagnosis, need for follow-up - Departure Departure Disposition: Home Clinical Impression: Migraine headache Condition: Stable Critical Care Time: No Referrals: YAMINI COTE [Primary Care Provider] - Additional Instructions: call dr. cote and your neurologist today to arrange earlier evaluation and management as an outpatient.
[2019-07-08] MEDS ORDERED: Phenergan 25 MG INJ IM ONE (05:22)
[2019-07-08] MEDS ORDERED: Phenergan 25 MG INJ ONE (05:24)
[2019-07-08] MEDS ORDERED: Hydromorphone 1 mg/ml Ampule ONE (05:25)
[2019-07-08 05:50] VITALS: BP 137/79; PULSE 70
== END 2019-07-08 06:08 | disposition home or self-care (01) ==
LOC: ED 04:48
DX: G43.909 Migraine, unspecified, not intractable, without status migrainosus (principal)
CPT/HCPCS: 96372; 99284; J1170; J2550

== ENCOUNTER 2019-11-01 13:23 | Day surgery (SDC) | payer OTHER ==
[~2019-11-01 13:23] MED LIST: Lactated Ringers 1,000 ML IV ONE; MEFOXIN 2 GM PREMIX** 2 GM/50 ML ML IV ONE; Sensorcaine 0.25% 10 ML ONE
[2019-11-01] MEDS ORDERED: Lactated Ringers 1,000 ML IV SCH (13:30)
[2019-11-01] MEDS ORDERED: MEFOXIN 2 GM PREMIX** 2 GM/50 ML ML IV SCH (14:00)
[2019-11-01] MEDS ORDERED: SUBLIMAZE 100 MCG/2 ML ONE ×2 (15:14→17:16)
[2019-11-01] MEDS ORDERED: Quelicin Fliptop 200 MG/10 ML ONE (15:14)
[2019-11-01] MEDS ORDERED: Zemuron 100 MG/10 ML ONE (15:14)
[2019-11-01] MEDS ORDERED: DIPRIVAN 200 MG/20 ML IV ONE (15:14)
[2019-11-01] MEDS ORDERED: Zofran 4 MG/2 ML VIAL ONE (16:27)
[2019-11-01] MEDS ORDERED: TORAdol 30 mg Injection ONE (16:27)
[2019-11-01] MEDS ORDERED: Decadron 4 MG INJ ONE ×2 (16:27→16:39)
[2019-11-01] MEDS ORDERED: BRIDION 200MG/2ML IV ONE (16:57)
[2019-11-01] MEDS ORDERED: Lactated Ringers 1,000 ML IV ONE (17:16)
[2019-11-01] MEDS ORDERED: Compazine 10 MG/2 ML IV ONE (18:13)
[2019-11-01] MEDS ORDERED: Compazine 10 MG/2 ML ONE (18:15)
[2019-11-01 18:26] VITALS: BP 97/52; PULSE 76; O2SAT 98
--- NOTE | 2019-11-02 15:43 | OP ---
SURGERY DATE/TIME: 11/01/2019 1621 PREOPERATIVE DIAGNOSIS: Symptomatic cholelithiasis. POSTOPERATIVE DIAGNOSIS: Symptomatic cholelithiasis. PROCEDURE: Laparoscopic cholecystectomy. SURGEON: Dr. Xiao. ANESTHESIA: General endotracheal tube. ESTIMATED BLOOD LOSS: None. COMPLICATIONS: None. CONDITION: Stable. INDICATIONS: A patient with upper abdominal pain. DESCRIPTION OF PROCEDURE AND FINDINGS: Taken to surgery. General anesthetic, routine prep and drape. Veress needle inserted. Opening pressure of 1, insufflating pressure 14. Four - 5's. Visualization of the pelvis. Left pelvic side wall with generous ovary and there was some almost ovary-looking tissue about 2 cm above this on the pelvic side wall. There were five or six dark flecks consistent with endometriosis. The patient has had hysterectomy. On the right side there were two to three flecks of this endometriosis-like tissue in the right adnexal area and the right adnexa was surgically absent. There were few adhesions of omentum against basically the ex-hysterectomy site. Cystic duct defined. Cystic artery defined. Both structures triply clipped and transected. Clips noted across and well approximated. Gallbladder rolled out of gallbladder fossa. The gallbladder delivered through upper abdominal port was widened slightly and removed. Hole closure device was used 0 Vicryl. Field was dry. CO2 exsufflated. Skin closed with 4-0 Vicryl and Steri-Strips. The patient tolerated the procedure satisfactorily.
== END 2019-11-01 18:35 | disposition home or self-care (01) ==
LOC: SDC 13:23
PROVIDERS: ATTEND Surgery
DX: K80.20 Calculus of gallbladder without cholecystitis without obstruction (principal)
CPT/HCPCS: 88304; J0330; J0694; J1100; J1885; J2405; J2704; J3010

== ENCOUNTER 2020-11-07 20:52 | Emergency (ER) | payer OTHER ==
[2020-11-07 21:31] VITALS: O2SAT 100
[2020-11-07 21:38] LABS: Absolute Neutrophil Ct (ANC) 5.09 (1.4-6.9); BASOPHIL % 0.3 % (0.0-0.4); Basophil (Absolute #) 0.02 (0-0.4); Eosinophil % 2.1 % (0.00-5.0); Eosinophil (Absolute #) 0.16 (0-0.5); Hematocrit 42.1 % (35-47); Hemoglobin 14.4 gm/dl (12.0-16.0); Lymphocyte (Absolute #) 1.77 (1.0-4.6); Lymphocytes % 23.5 % (24.0-44.0); Mean Cell Volume 90.7 fl (78-100); Mean Corpuscular Hgb Concent. 34.2 g/dl (32-36); Mean Platelet Volume 10.7 fl (7.5-11.0); Monocyte (Absolute #) 0.48 (0.0-1.3); Monocytes % 6.4 % (0.0-12.0); Neutrophil % 67.7 % (36.0-66.0); Platelet Count 212 K/mm3 (150-450); Red Blood Count 4.64 M/mm3 (4.1-5.4); Red Cell Distribution Width 12.8 % (11.5-14.0); White Blood Count 7.5 K/mm3 (4.0-10.5)
--- NOTE | 2020-11-07 21:39 | ERPHSYRPT ---
- History of Present Illness Time Seen by Provider: 11/07/20 21:35 Historian: patient Physician History: Patient is a 40-year-old female presents to our ED with complaints of chest pain. Patient states that she has been experiencing back pain for approximately 2 weeks. And now she is experiencing chest pain which started approximately 1 week ago. Pain rated 3 out of 10. Pain described as a dull ache occasionally stabbing. Symptoms are intermittent. No associated nausea vomiting or diap horesis. No trauma. No fever. Symptoms are mild to moderate in intensity. No specific worsening improving factors. No history of the same. Patient is otherwise healthy. She voices no other complaints or concerns at this time. Timing/Duration: week(s) (Aches) Activities at Onset: none Quality: dullness, sharpness Location: substernal Chest Pain Radiation: no radiation (Pain in the back and the front appear to be 2 different pains. No radiation per se.) Severity of Pain-Max: moderate Severity of Pain-Current: mild Modifying Factors: Improves With: breathing (Deep breathing reproduces sym ptoms.) Associated Symptoms: denies symptoms, No abdominal pain, No shortness of breath, No cough, No diaphoresis, No fever, No headache, No dizziness, No edema Prior Chest Pain/Cardiac Workup: no prior chest pain Nitro Today/Relief: no nitro taken today Aspirin Treatment Today: no aspirin today Allergies/Adverse Reactions: No Known Drug Allergies Allergy (Verified 11/07/20 21:18) Home Medications: Levothyroxine Sodium [Synthroid] 112 mcg PO DAILY 09/11/14 [History] Buspirone HCl 5 mg [Buspar 5 mg] 5 mg PO DAILY 07/08/19 [History] Topiramate [Topamax] 50 mg PO HS 10/29/19 [History] Hydrocodone/APAP 5-325 Tab^^^ [[place] 5-325 Tablet^^^] 1 tab PO Q4HPRN PRN MDD 6 11/01/19 [History] Melatonin/Pyridoxine [Melatonin 5 mg Tablet] 1 each PO HS 11/01/19 [History] Hx Tetanus, Diphtheria Vaccination/Date Given: Yes Hx Influenza Vaccination/Date Given: No Hx Pneumococcal Vaccination/Date Given: No Travel Risk - International Travel Have you traveled outside of the country in past 3 weeks: No - Coronavirus Screening Are you exhibiting any of the following symptoms?: No Close contact with a COVID-19 positive Pt in past 14-21 Days: No - Review of Systems Constitutional: No Symptoms, No Fever, No Chills Eyes: No Symptoms Ears, Nose, & Throat: No Symptoms Respiratory: No Symptoms, No Cough, No Dyspnea Cardiac: No Symptoms, No Chest Pain, No Edema, No Syncope Abdominal/Gastrointestinal: No Symptoms, No Abdominal Pain, No Nausea, No Vomiting, No Diarrhea Genitourinary Symptoms: No Symptoms, No Dysuria Musculoskeletal: No Symptoms, No Back Pain, No Neck Pain Skin: No Symptoms, No Rash Neurological: No Symptoms, No Dizziness, No Focal Weakness, No Sensory Changes Psychological: No Symptoms Endocrine: No Symptoms Hematologic/Lymphatic: No Symptoms Immunological/Allergic: No Symptoms All Other Systems: Reviewed and Negative - Past Medical History Pertinent Past Medical History: Yes Neurological History: Migraines ENT History: No Pertinent History Cardiac History: No Pertinent History Respiratory History: No Pertinent History Endocrine Medical History: Hypothyroidism, Other Musculoskeletal History: No Pertinent History GI Medical History: No Pertinent History History: No Pertinent History Psycho-Social History: No Pertinent History Female Reproductive Disorders: No Pertinent History Other Medical History: HYPOGLYCEMIA - Past Surgical History Past Surgical History: Yes Neuro Surgical History: No Pertinent History Cardiac: No Pertinent History Respiratory: No Pertinent History Gastrointestinal: No Pertinent History Genitourinary: No Pertinent History Musculoskeletal: No Pertinent History Female Surgical History: Hysterectomy, Section, Tubal Ligation, Other Other Surgical History: D/C - Social History Smoking Status: Never smoker Exposure to second hand smoke: Yes Drug Use: none Patient Lives Alone: No - Female History Hx Now: No - Nursing Vital Signs Nursing Vital Signs: Initial Vital Signs Temperature 98.9 F 11/07/20 21:18 Pulse Rate 93 H 11/07/20 21:18 Respiratory Rate 16 11/07/20 21:18 Blood Pressure 106/72 11/07/20 21:18 O2 Sat by Pulse Oximetry 100 11/07/20 21:18 Pain Scale Pain Intensity [Chest] 3 Pain Intensity [Posterior Back 3 ] Pain Intensity 3 - Physical Exam General Appearance: no apparent distress, alert Eye Exam: PERRL/EOMI, eyes nml inspection Ears, Nose, Throat Exam: normal ENT inspection, moist mucous membranes Neck Exam: normal inspection, non-tender, supple, full range of motion Respiratory Exam: normal breath sounds, lungs clear, No respiratory distress Cardiovascular Exam: regular rate/rhythm, normal heart sounds Gastrointestinal/Abdomen Exam: soft, No tenderness, No mass Back Exam: normal inspection, No CVA tenderness, No vertebral tenderness Extremity Exam: normal inspection, normal range of motion Neurologic Exam: alert, 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, cooperative, normal mood/affect, sensation nml, No motor deficits Skin Exam: normal color, warm, dry Lymphatic Exam: No adenopathy SpO2 Interpretation: normal SpO2: 100 O2 Delivery: Room Air - Radiology Exams Chest X-ray Interpretation: Interpreted by me (Negative chest x-ray) Ordered Tests: Active Orders 24 hr Category Date Time Status Snag Grinder STAT Care 11/07/20 21:25 Active EKG-ER Only STAT Care 11/07/20 21:24 Active IV Insertion STAT Care 11/07/20 21:24 Active Pulse Oximetry (ED) STAT Care 11/07/20 21:24 Active CHEST 1 VIEW (PORTABLE) Stat Exams 11/07/20 21:25 Taken CBC W DIFF Stat Lab 11/07/20 21:19 Completed CMP Stat Lab 11/07/20 21:19 Completed D-DIMER QUANTITATIVE Stat Lab 11/07/20 21:19 Completed MAGNESIUM Stat Lab 11/07/20 21:19 Completed TROPONIN Q3H Lab 11/07/20 21:19 Completed TROPONIN Q3H Lab 11/08/20 00:30 Ordered TROPONIN Q3H Lab 11/08/20 03:30 Ordered TROPONIN Q3H Lab 11/08/20 06:30 Ordered TROPONIN Q3H Lab 11/08/20 09:30 Ordered UA W/RFX UR CULTURE Stat Lab 11/07/20 21:34 Completed Lab/Rad Data: Laboratory Result Diagrams 11/07/20 21:19 11/07/20 21:19 Laboratory Results 11/07/20 11/07/20 11/07/20 Range/Units 21:34 21:19 21:19 WBC (4.0-10.5) K/mm3 RBC (4.1-5.4) M/mm3 Hgb (12.0-16.0) gm/dl Hct (35-47) % MCV (78-100) fl MCH (26-32) pg MCHC (32-36) g/dl RDW (11.5-14.0) % Plt Count (150-450) K/mm3 MPV (7.5-11.0) fl Gran % (36.0-66.0) % Eos # (Auto) (0-0.5) Absolute Lymphs (auto) (1.0-4.6) Absolute Monos (auto) (0.0-1.3) Lymphocytes % (24.0-44.0) % Monocytes % (0.0-12.0) % Eosinophils % (0.00-5.0) % Basophils % (0.0-0.4) % Absolute Granulocytes (1.4-6.9) Basophils # (0-0.4) D-Dimer 400 (215-500) ng/mL Sodium (137-145) mmol/L Potassium (3.5-5.1) mmol/L Chloride (98-107) mmol/L Carbon Dioxide (22-30) mmol/L Anion Gap (5-15) MEQ/L BUN (7-17) mg/dL Creatinine (0.52-1.04) mg/dL Estimated GFR ML/MIN Glucose (74-106) mg/dL Calcium (8.4-10.2) mg/dL Magnesium (1.6-2.3) mg/dL Total Bilirubin (0.2-1.3) mg/dL AST (14-36) U/L ALT (0-35) U/L Alkaline Phosphatase (38-126) U/L Troponin I < 0.012 (0.000-0.034) ng/mL Serum Total Protein (6.3-8.2) g/dL Albumin (3.5-5.0) g/dL Urine Color YELLOW (YELLOW) Urine Appearance SLIGHTLY CLOUDY (CLEAR) Urine pH 6.0 (5-6) Ur Specific [place] 1.023 (1.005-1.025) Urine Protein NEGATIVE (Negative) Urine Ketones NEGATIVE (NEGATIVE) Urine Blood NEGATIVE (0-5) Bakari/ul Urine Nitrite NEGATIVE (NEGATIVE) Urine Bilirubin NEGATIVE (NEGATIVE) Urine Urobilinogen NEGATIVE (0-1) mg/dL Ur Leukocyte Esterase NEGATIVE (NEGATIVE) Urine WBC (Auto) 3-5 (0-5) /HPF Urine RBC (Auto) NONE SEEN (0-2) /HPF U Epithel Cells (Auto) RARE (FEW) /HPF Urine Bacteria (Auto) NONE SEEN (NEGATIVE) /HPF Amorphous Crystals FEW (NEGATIVE) /HPF Urine Mucus (Auto) SLIGHT (NEGATIVE) /HPF Urine Culture Reflexed NO (NO) Urine Glucose NEGATIVE (NEGATIVE) mg/dL 11/07/20 11/07/20 Range/Units 21:19 21:19 WBC 7.5 (4.0-10.5) K/mm3 RBC 4.64 (4.1-5.4) M/mm3 Hgb 14.4 (12.0-16.0) gm/dl Hct 42.1 (35-47) % MCV 90.7 (78-100) fl MCH 31.0 (26-32) pg MCHC 34.2 (32-36) g/dl RDW 12.8 (11.5-14.0) % Plt Count 212 (150-450) K/mm3 MPV 10.7 (7.5-11.0) fl Gran % 67.7 H (36.0-66.0) % Eos # (Auto) 0.16 (0-0.5) Absolute Lymphs (auto) 1.77 (1.0-4.6) Absolute Monos (auto) 0.48 (0.0-1.3) Lymphocytes % 23.5 L (24.0-44.0) % Monocytes % 6.4 (0.0-12.0) % Eosinophils % 2.1 (0.00-5.0) % Basophils % 0.3 (0.0-0.4) % Absolute Granulocytes 5.09 (1.4-6.9) Basophils # 0.02 (0-0.4) D-Dimer (215-500) ng/mL Sodium 137 (137-145) mmol/L Potassium 4.0 (3.5-5.1) mmol/L Chloride 107 (98-107) mmol/L Carbon Dioxide 22 (22-30) mmol/L Anion Gap 11.9 (5-15) MEQ/L BUN 15 (7-17) mg/dL Creatinine 1.07 H (0.52-1.04) mg/dL Estimated GFR > 60.0 ML/MIN Glucose 96 (74-106) mg/dL Calcium 9.6 (8.4-10.2) mg/dL Magnesium 2.0 (1.6-2.3) mg/dL Total Bilirubin 0.40 (0.2-1.3) mg/dL AST 20 (14-36) U/L ALT 11 (0-35) U/L Alkaline Phosphatase 41 (38-126) U/L Troponin I (0.000-0.034) ng/mL Serum Total Protein 7.5 (6.3-8.2) g/dL Albumin 4.5 (3.5-5.0) g/dL Urine Color (YELLOW) Urine Appearance (CLEAR) Urine pH (5-6) Ur Specific [place] (1.005-1.025) Urine Protein (Negative) Urine Ketones (NEGATIVE) Urine Blood (0-5) Bakari/ul Urine Nitrite (NEGATIVE) Urine Bilirubin (NEGATIVE) Urine Urobilinogen (0-1) mg/dL Ur Leukocyte Esterase (NEGATIVE) Urine WBC (Auto) (0-5) /HPF Urine RBC (Auto) (0-2) /HPF U Epithel Cells (Auto) (FEW) /HPF Urine Bacteria (Auto) (NEGATIVE) /HPF Amorphous Crystals (NEGATIVE) /HPF Urine Mucus (Auto) (NEGATIVE) /HPF Urine Culture Reflexed (NO) Urine Glucose (NEGATIVE) mg/dL - Progress Progress: improved Air Movement: good Progress Note: 11/07/20 22:57 Patient reassessed. She remains asymptomatic. Vitals within normal limits. EK G within normal limits. Chest x-ray within normal limits. No lab significant abnormalities observed. Patient is low risk will discharge home. Patient agrees to follow-up with her primary care doctor within 48 hours for reevaluation. Blood Culture(s) Obtained: No Antibiotics given: No Counseled pt/family regarding: lab results, diagnosis, rad results - Departure Departure Disposition: Home Clinical Impression: Chest pain Condition: Stable Critical Care Time: No Referrals: YAMINI VASQUEZ [Primary Care Provider] - Additional Instructions: Discharge/Care Plan CLEVELANDZENAIDA BARNEY was seen on 11/07/20 in the Emergency Room. The patient was counseled regarding Diagnosis,Lab results, Imaging studies, need for follow up and when to return to the Emergency Room. Prescriptions given: Discharge Note I have spoken with the patient and/or caregivers. I have explained the patient's condition, diagnosis and treatment plan based on the information available to me at this time. I have answered the patient's and/or caregiver's questions and addressed any concerns. The patient and/or caregivers have as good understanding of the patient's diagnosis, condition and treatment plan as can be expected at this point. The vital signs have been stable. The patient's condition is stable and appropriate for discharge from the emergency department. The patient will pursue further outpatient evaluation with the primary care physician or other designated or consulting physician as outlined in the discharge instructions. The patient and/or caregivers are agreeable to this plan of care and follow-up instructions have been explained in detail. The patient and/or caregivers have received these instruction. The patient/and or caregivers are aware that any significant change in condition or worsening of symptoms should prompt an immediate return to this or the closest emergency department or call 911.
[2020-11-07 21:42] LABS: ALBUMIN 4.5 g/dL (3.5-5.0); ALKALINE PHOSPHATASE 41 U/L (38-126); ANION GAP 11.9 MEQ/L (5-15); BLOOD UREA NITROGEN 15 mg/dL (7-17); CHLORIDE 107 mmol/L (98-107); Calcium 9.6 mg/dL (8.4-10.2); Carbon Dioxide 22 mmol/L (22-30); Creatinine 1 1.07 mg/dL (0.52-1.04); EST GLOMERULAR FILTRATION RATE > 60.0 ML/MIN; Glucose 96 mg/dL (74-106); SGOT/AST 20 U/L (14-36); SGPT/ALT 11 U/L (0-35); SODIUM 137 mmol/L (137-145); Total Protein 7.5 g/dL (6.3-8.2)
[2020-11-07 21:56] LABS: Amourphous Crystal FEW /HPF (NEGATIVE); Appearance SLIGHTLY CLOUDY (CLEAR); Bacteria NONE SEEN /HPF (NEGATIVE); Bilirubin NEGATIVE (NEGATIVE); Blood NEGATIVE Ery/ul (0-5); Epithelial Cells RARE /HPF (FEW); Glucose NEGATIVE (NEGATIVE); Ketones NEGATIVE (NEGATIVE); Leukocyte Esterase NEGATIVE (NEGATIVE); Mucus SLIGHT /HPF (NEGATIVE); Nitrite NEGATIVE (NEGATIVE); Protein,Urine Dip NEGATIVE (Negative); RBC NONE SEEN /HPF (0-2); Specific Gravity 1.023 (1.005-1.025); Urobilinogen NEGATIVE mg/dL (0-1)
[2020-11-07 23:45] VITALS: BP 108/61; PULSE 67
--- NOTE | 2020-11-08 08:51 | XRAY ---
Indication: Chest pain. Comparison: October 14, 2019. Portable chest again demonstrates normal heart, lungs, and bony thorax with a few incidental calcified granulomas.
== END 2020-11-07 23:33 | disposition home or self-care (01) ==
LOC: ED 20:52
DX: R07.9 Chest pain, unspecified (principal); E03.9 Hypothyroidism, unspecified; Z79.899 Other long term (current) drug therapy; Z79.891 Long term (current) use of opiate analgesic
CPT/HCPCS: 36000; 36415; 71045; 80053; 81001; 83735; 84484; 85025; 85379; 93005; 93041; 94760; 99284

== ENCOUNTER 2021-04-08 12:45 | Emergency (ER) | payer OTHER ==
[2021-04-08 13:03] VITALS: BP 123/63; PULSE 82; O2SAT 100
[2021-04-08] MEDS ORDERED: TORAdol 30 mg Injection IM ONE (13:28)
[2021-04-08] MEDS ORDERED: Norflex 60 MG/2 ML IM ONE (13:29)
--- NOTE | 2021-04-08 13:34 | ERPHSYRPT ---
- History of Present Illness Time Seen by Provider: 04/08/21 15:41 Source: patient Exam Limitations: no limitations Patient Subjective Stated Complaint: pt reports sciatic pain for 2-3 weeks, states she is being treated by her PCP, states previously she was able to find a position of comfort and today she is very uncomfortable and her pain is constant. reports pain to the left lower back that radiates down to her hip ang leg. Triage Nursing Assessment: pt is aox3, appears in pain, pupils perrl, afebrile, resps easy and non labored, cap refill < 3 seconds, pt skin pink warm dry. pt ROM, sensation intact, pt ambulatory to trt room with slow, steady gait. Physician History: pt has hx of previous back pain with sciatica on left similar to today, but now increasing. No trauma, no new neuro symptoms, no bladder problems, and bowels are stable with constipation. abd nontender. tender left sciatic notch reported same as prior to pt. no urinary symptoms but will check urine to be safe. No Hx cancers Timing/Duration: week(s) Method of Injury: unknown Quality: dull, radiating, throbbing Back Pain Location: lumbar spine, paraspinous muscles Back Pain Radiation: lower legs (left) Severity of Pain-Max: moderate Severity of Pain-Current: moderate Associated Symptoms: constipation, other (sciatica similar to prior), No fever, No problems urinating Previous symptoms: same symptoms as today, recently treated Allergies/Adverse Reactions: No Known Drug Allergies Allergy (Verified 04/08/21 13:03) Home Medications: Levothyroxine Sodium [Synthroid] 112 mcg PO DAILY 09/11/14 [History] Buspirone HCl 5 mg [Buspar 5 mg] 5 mg PO DAILY 07/08/19 [History] Topiramate [Topamax] 50 mg PO HS 10/29/19 [History] Melatonin/Pyridoxine [Melatonin 5 mg Tablet] 1 each PO HS 11/01/19 [History] Gabapentin 100 mg [Neurontin 100 MG] 100 mg PO TID 04/08/21 [History] Lidocaine HCl 5% Patch [Lidoderm Patch 5%] 1 patch TOP UD 04/08/21 [History] Hx Tetanus, Diphtheria Vaccination/Date Given: Yes Hx Influenza Vaccination/Date Given: Yes Hx Pneumococcal Vaccination/Date Given: No Immunizations Up to Date: Yes Travel Risk - International Travel Have you traveled outside of the country in past 3 weeks: No - Coronavirus Screening Are you exhibiting any of the following symptoms?: No Close contact with a COVID-19 positive Pt in past 14-21 Days: No - Vaccine Status Have you recieved a Covid-19 vaccination: No - Review of Systems Constitutional: No Fever, No Chills Eyes: No Symptoms Ears, Nose, & Throat: No Symptoms Respiratory: No Cough, No Dyspnea Cardiac: No Chest Pain, No Edema, No Syncope Abdominal/Gastrointestinal: No Abdominal Pain, No Nausea, No Vomiting, No Diarrhea Genitourinary Symptoms: No Dysuria, No Frequency Musculoskeletal: Back Pain, Other (left sciatica), No Neck Pain, No Fall, No Injury Skin: No Symptoms, No Rash Neurological: No Dizziness, No Focal Weakness, No Sensory Changes Psychological: No Symptoms Endocrine: No Symptoms Hematologic/Lymphatic: No Symptoms Immunological/Allergic: No Symptoms All Other Systems: Reviewed and Negative - Past Medical History Pertinent Past Medical History: Yes Neurological History: Migraines ENT History: No Pertinent History Cardiac History: No Pertinent History Respiratory History: No Pertinent History Endocrine Medical History: Hypothyroidism, Other Musculoskeletal History: No Pertinent History GI Medical History: No Pertinent History History: No Pertinent History Psycho-Social History: No Pertinent History Female Reproductive Disorders: No Pertinent History Other Medical History: HYPOGLYCEMIA. SCIATICA - Past Surgical History Past Surgical History: Yes Neuro Surgical History: No Pertinent History Cardiac: No Pertinent History Respiratory: No Pertinent History Gastrointestinal: No Pertinent History Genitourinary: No Pertinent History Musculoskeletal: No Pertinent History Female Surgical History: Hysterectomy, Section, Tubal Ligation, Other Other Surgical History: D/C - Social History Smoking Status: Never smoker Exposure to second hand smoke: No Drug Use: none Patient Lives Alone: No - Female History Hx Last Menstrual Period: HYST Hx Now: No - Nursing Vital Signs Nursing Vital Signs: Initial Vital Signs Temperature 97.8 F 04/08/21 12:52 Pulse Rate 82 04/08/21 12:52 Respiratory Rate 18 04/08/21 12:52 Blood Pressure 123/63 04/08/21 12:52 O2 Sat by Pulse Oximetry 100 04/08/21 12:52 Pain Scale Pain Intensity 6 - Physical Exam General Appearance: no apparent distress, alert Eye Exam: PERRL/EOMI, eyes nml inspection Ears, Nose, Throat Exam: normal ENT inspection Neck Exam: normal inspection, non-tender, supple, full range of motion, No meningismus, No midline tenderness Respiratory Exam: normal breath sounds, lungs clear, No respiratory distress Cardiovascular Exam: regular rate/rhythm, normal heart sounds Gastrointestinal Exam: soft, No tenderness, No mass Back Exam: decreased range of motion, muscle spasm Extremity Exam: normal inspection, normal range of motion, No calf tenderness, No pedal edema Peripheral Pulses: carotid (R): 2+, carotid (L): 2+, femoral (R): 2+, femoral (L): 2+, dorsalis-pedis (R): 2+, dorsalis-pedis (L): 2+ Neurologic Exam: alert, 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, cooperative, vulnerability researcher II-XII nml as tested, normal mood/affect, nml station & gait, sensation nml, other (decreased sensation left L5-S1 without change per pt. ), No motor deficits Skin Exam: normal color, warm, dry, No rash SpO2 Interpretation: normal SpO2: 100 O2 Delivery: Room Air - Course Nursing assessment & vital signs reviewed: Yes Ordered Tests: Active Orders 24 hr Category Date Time Status UA W/RFX UR CULTURE Stat Lab 04/08/21 13:45 Completed Medication Summary Discontinued Medications Generic Name Dose Route Start Last Admin Trade Name Dwayneq PRN Reason Stop Dose Admin Ketorolac Tromethamine 60 mg 04/08/21 13:28 04/08/21 13:52 Toradol 30 Mg Injection IM 04/08/21 13:29 60 mg STAT ONE Administration Ketorolac Tromethamine Confirm 04/08/21 13:48 Toradol 30 Mg Injection Administered 04/08/21 13:49 Dose 60 mg .ROUTE .STK-MED ONE Orphenadrine Citrate 60 mg 04/08/21 13:29 04/08/21 13:52 Norflex 60 Mg/2 Ml IM 04/08/21 13:30 60 mg STAT ONE Administration Orphenadrine Citrate Confirm 04/08/21 13:49 Norflex 60 Mg/2 Ml Administered 04/08/21 13:50 Dose 60 mg .ROUTE .STK-MED ONE Lab/Rad Data: Laboratory Results 04/08/21 Range/Units 13:45 Urine Color YELLOW (YELLOW) Urine Appearance CLEAR (CLEAR) Urine pH 6.0 (5-6) Ur Specific [place] 1.020 (1.005-1.025) Urine Protein NEGATIVE (Negative) Urine Ketones NEGATIVE (NEGATIVE) Urine Blood NEGATIVE (0-5) Bakari/ul Urine Nitrite NEGATIVE (NEGATIVE) Urine Bilirubin NEGATIVE (NEGATIVE) Urine Urobilinogen NEGATIVE (0-1) mg/dL Ur Leukocyte Esterase NEGATIVE (NEGATIVE) Urine WBC (Auto) 3-5 (0-5) /HPF Urine RBC (Auto) NONE (0-2) /HPF U Epithel Cells (Auto) NONE (FEW) /HPF Urine Bacteria (Auto) RARE (NEGATIVE) /HPF Urine Mucus (Auto) SLIGHT (NEGATIVE) /HPF Urine Culture Reflexed NO (NO) Urine Glucose NEGATIVE (NEGATIVE) mg/dL - Progress Progress: improved, re-examined Progress Note: 04/08/21 15:42 pts symptoms improved after Tx; she wishes outpt f/u rather than furhter w/u in ER at this time and has the capacity to make this choice. SHe will have masses w/u with PCP as planned along spine and at sciatic notch. Counseled pt/family regarding: lab results, diagnosis, need for follow-up - Departure Departure Disposition: Home Clinical Impression: Sciatica of left side associated with disorder of lumbosacral spine Condition: Good Critical Care Time: No Referrals: YAMINI VASQUEZ [Primary Care Provider] - Instructions: Low Back Pain (DC), Sciatica (DC) Additional Instructions: follow-up as planned with your DrJennifer for further work=up and imaging of your spine and sciatica symptoms such as possible MRI including of the tissue masses of your back and sciatic area. Return meantime if any concerns, fever, increased pain, vomiting, abdominal pain, bowel or bladder symptoms or other concerns. Prescriptions: Orphenadrine Citrate 100 mg [Norflex 100 MG Tablet] 100 mg PO BID #14 tab
[2021-04-08 13:46] LABS: Appearance CLEAR (CLEAR); Bilirubin NEGATIVE (NEGATIVE); Blood NEGATIVE Ery/ul (0-5); Glucose NEGATIVE (NEGATIVE); Ketones NEGATIVE (NEGATIVE); Leukocyte Esterase NEGATIVE (NEGATIVE); Mucus SLIGHT /HPF (NEGATIVE); Nitrite NEGATIVE (NEGATIVE); Protein,Urine Dip NEGATIVE (Negative); Urobilinogen NEGATIVE mg/dL (0-1)
[2021-04-08] MEDS ORDERED: TORAdol 30 mg Injection ONE (13:48)
[2021-04-08 13:49] LABS: Bacteria RARE /HPF (NEGATIVE)
[2021-04-08] MEDS ORDERED: Norflex 60 MG/2 ML ONE (13:49)
[2021-04-08] MEDS ORDERED: Zanaflex 4 MG PO ONE (16:28)
== END 2021-04-08 16:47 | disposition home or self-care (01) ==
LOC: ED 12:45
DX: M54.32 Sciatica, left side (principal); M53.87 Other specified dorsopathies, lumbosacral region
CPT/HCPCS: 81001; 96372; 99284; J1885; J2360; A9270-GY

== ENCOUNTER 2022-03-07 18:11 | Emergency (ER) | payer OTHER ==
[2022-03-07] MEDS ORDERED: Sodium Chloride 0.9% 1000 ML 1,000 ML IV STA (18:44)
--- NOTE | 2022-03-07 18:46 | ERPHSYRPT ---
- History of Present Illness Time Seen by Provider: 03/07/22 18:21 Historian: patient Exam Limitations: no limitations Physician History: 41-year-old female presented to ER with sudden onset suprapubic/right flank/right lower quadrant pain almost 2-1/2 hours ago with radiation to the back with associated nausea and vomiting. Pain is moderate to severe sharp shooting, aggravated with movements palpation/ambulation and no significant relieving factors. Denies any hematuria, difficulty urination, increased frequency or urgency. No fever or chills reported. Timing/Duration: hour(s) (2), constant, sudden, worse Activities at Onset: rest Quality: sharpness Abdominal Pain Onset Location: RLQ, suprapubic Pain Radiation: back Severity of Pain-Max: severe Severity of Pain-Current: severe Modifying Factors: Worsens With: movement, palpation Associated Symptoms: nausea, vomiting Previous symptoms: no prior history Allergies/Adverse Reactions: No Known Drug Allergies Allergy (Verified 04/08/21 13:03) Home Medications: Levothyroxine Sodium [Synthroid] 112 mcg PO DAILY 09/11/14 [History] Buspirone HCl 5 mg [Buspar 5 mg] 5 mg PO DAILY 07/08/19 [History] Topiramate [Topamax] 50 mg PO HS 10/29/19 [History] Melatonin/Pyridoxine [Melatonin 5 mg Tablet] 1 each PO HS 11/01/19 [History] Gabapentin 100 mg [Neurontin 100 MG] 100 mg PO TID 04/08/21 [History] Lidocaine HCl 5% Patch [Lidoderm Patch 5%] 1 patch TOP UD 04/08/21 [History] Hx Tetanus, Diphtheria Vaccination/Date Given: Yes Hx Influenza Vaccination/Date Given: Yes Hx Pneumococcal Vaccination/Date Given: No Travel Risk - Vaccine Status Have you recieved a Covid-19 vaccination: No - Review of Systems Constitutional: No Symptoms Eyes: No Symptoms Ears, Nose, & Throat: No Symptoms Respiratory: No Symptoms Cardiac: No Symptoms Abdominal/Gastrointestinal: Abdominal Pain, Nausea, Vomiting Genitourinary Symptoms: No Symptoms Musculoskeletal: No Symptoms Skin: No Symptoms Neurological: No Symptoms Psychological: No Symptoms Endocrine: No Symptoms Hematologic/Lymphatic: No Symptoms Immunological/Allergic: No Symptoms - Past Medical History Pertinent Past Medical History: Yes Neurological History: Migraines ENT History: No Pertinent History Cardiac History: No Pertinent History Respiratory History: Asthma Endocrine Medical History: Hypothyroidism Musculoskeletal History: No Pertinent History GI Medical History: No Pertinent History History: No Pertinent History Psycho-Social History: No Pertinent History Female Reproductive Disorders: No Pertinent History Other Medical History: HISTORY OF MIGRAINES, HYPOTHROIDISM. - Past Surgical History Past Surgical History: Yes Neuro Surgical History: No Pertinent History Cardiac: No Pertinent History Respiratory: No Pertinent History Gastrointestinal: No Pertinent History Genitourinary: No Pertinent History Musculoskeletal: No Pertinent History Female Surgical History: Hysterectomy, Section, Tubal Ligation, Other Other Surgical History: D/C - Social History Smoking Status: Never smoker Exposure to second hand smoke: No Drug Use: none Patient Lives Alone: No - Nursing Vital Signs Nursing Vital Signs: Initial Vital Signs Pulse Rate 46 L 03/07/22 18:11 Respiratory Rate 18 03/07/22 18:11 Blood Pressure 122/63 03/07/22 18:11 O2 Sat by Pulse Oximetry 99 03/07/22 18:11 Pain Scale Pain Intensity 10 - Physical Exam General Appearance: no apparent distress, alert Eye Exam: PERRL/EOMI Ears, Nose, Throat Exam: normal ENT inspection, pharynx normal, moist mucous membranes Neck Exam: normal inspection, supple, full range of motion Respiratory Exam: normal breath sounds, lungs clear Cardiovascular Exam: regular rate/rhythm, normal heart sounds, normal peripheral pulses Gastrointestinal/Abdomen Exam: soft, normal bowel sounds, tenderness (Suprapubic/right lower quadrant/right flank. No guarding or rebound tenderness. Negative obturator and Rosing sign. Negative psoas sign.) Extremity Exam: normal inspection, normal range of motion Neurologic Exam: alert, 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, cooperative Skin Exam: normal color SpO2 Interpretation: normal SpO2: 96 O2 Delivery: Room Air Ordered Tests: Active Orders 24 hr Category Date Time Status IV Insertion STAT Care 03/07/22 18:44 Active NPO (ED) STAT Care 03/07/22 18:44 Active ABDOMEN AND PELVIS W/0 CONTRAS [CT] Stat Exams 03/07/22 19:05 Taken CBC W DIFF Stat Lab 03/07/22 19:22 Completed CMP Stat Lab 03/07/22 19:22 Completed HCG,QUALITATIVE URINE Stat Lab 03/07/22 18:50 Completed LIPASE Stat Lab 03/07/22 19:22 Completed UA W/RFX CULTURE Stat Lab 03/07/22 18:51 Results Medication Summary Discontinued Medications Generic Name Dose Route Start Last Admin Trade Name Andreina PRN Reason Stop Dose Admin Sodium Chloride 1,000 mls @ 999 mls/hr 03/07/22 18:44 03/07/22 18:48 Sodium Chloride 0.9% 1000 Ml IV 03/07/22 19:44 999 mls/hr .Q1H1M STA Administration Sodium Chloride Confirm 03/07/22 18:47 Sodium Chloride 0.9% 1000 Ml Administered 03/07/22 18:48 Dose 1,000 mls @ ud .ROUTE .STK-MED ONE Ketorolac Tromethamine 30 mg 03/07/22 18:51 Ketorolac Tromethamine 30 Mg/Ml Inj IV 03/07/22 18:52 STAT ONE Ketorolac Tromethamine Confirm 03/07/22 18:50 Ketorolac Tromethamine 30 Mg/Ml Inj Administered 03/07/22 18:51 Dose 30 mg .ROUTE .STK-MED ONE Morphine Sulfate 4 mg 03/07/22 18:44 Morphine Sulfate 4 Mg/Ml Injection IV 03/07/22 18:45 STAT ONE Morphine Sulfate Confirm 03/07/22 18:47 Morphine Sulfate 4 Mg/Ml Injection Administered 03/07/22 18:48 Dose 4 mg .ROUTE .STK-MED ONE Ondansetron HCl 4 mg 03/07/22 18:44 Ondansetron Hcl 4 Mg/2 Ml Vial IV 03/07/22 18:45 STAT ONE Ondansetron HCl Confirm 03/07/22 18:47 Ondansetron Hcl 4 Mg/2 Ml Vial Administered 03/07/22 18:48 Dose 4 mg .ROUTE .STK-MED ONE Lab/Rad Data: Laboratory Result Diagrams 03/07/22 19:22 03/07/22 19:22 Laboratory Results 03/07/22 03/07/22 03/07/22 Range/Units 19:22 19:22 18:51 WBC 8.8 (4.0-10.5) K/mm3 RBC 5.01 (4.1-5.4) M/mm3 Hgb 15.6 (12.0-16.0) gm/dl Hct 46.5 (35-47) % MCV 92.8 (78-100) fl MCH 31.1 (26-32) pg MCHC 33.5 (32-36) g/dl RDW 13.3 (11.5-14.0) % Plt Count 192 (150-450) K/mm3 MPV 10.5 (7.5-11.0) fl Gran % 82.3 H (36.0-66.0) % Eos # (Auto) 0.17 (0-0.5) Absolute Lymphs (auto) 0.90 L (1.0-4.6) Absolute Monos (auto) 0.47 (0.0-1.3) Lymphocytes % 10.2 L (24.0-44.0) % Monocytes % 5.3 (0.0-12.0) % Eosinophils % 1.9 (0.00-5.0) % Basophils % 0.3 (0.0-0.4) % Absolute Granulocytes 7.22 H (1.4-6.9) Basophils # 0.03 (0-0.4) Sodium 140 (137-145) mmol/L Potassium 4.1 (3.5-5.1) mmol/L Chloride 109 H (98-107) mmol/L Carbon Dioxide 19 L (22-30) mmol/L Anion Gap 16.1 H (5-15) MEQ/L BUN 14 (7-17) mg/dL Creatinine 0.90 (0.52-1.04) mg/dL Estimated GFR > 60.0 ML/MIN Glucose 127 H (74-106) mg/dL Calcium 9.3 (8.4-10.2) mg/dL Total Bilirubin 0.50 (0.2-1.3) mg/dL AST 27 (14-36) U/L ALT 14 (0-35) U/L Alkaline Phosphatase 45 (38-126) U/L Serum Total Protein 7.6 (6.3-8.2) g/dL Albumin 4.5 (3.5-5.0) g/dL Lipase 197 (23-300) U/L Urinalys Dipstick Clnc Pending Urine Color YELLOW (YELLOW) Urine Appearance CLOUDY (CLEAR) Urine pH 7.5 (5-6) Ur Specific [place] 1.020 (1.005-1.025) POC Urine Protein Conf TRACE (Negative) Urine Ketones NEGATIVE (NEGATIVE) Urine Nitrite NEGATIVE (NEGATIVE) Urine Bilirubin NEGATIVE (NEGATIVE) Urine Urobilinogen 0.2 (0-1) mg/dL Urine Leukocytes NEGATIVE (NEGATIVE) Urine WBC (Auto) 3-5 (0-5) /HPF Urine RBC (Auto) 0-2 (0-2) /HPF U Epithel Cells (Auto) RARE (FEW) /HPF Urine Bacteria (Auto) FEW (NEGATIVE) /HPF Urine RBC NEGATIVE (0-5) Bakari/ul Ur Culture Indicated? NO Urine Glucose NEGATIVE (NEGATIVE) mg/dL Urine HCG, Qual (Negative) 03/07/22 Range/Units 18:50 WBC (4.0-10.5) K/mm3 RBC (4.1-5.4) M/mm3 Hgb (12.0-16.0) gm/dl Hct (35-47) % MCV (78-100) fl MCH (26-32) pg MCHC (32-36) g/dl RDW (11.5-14.0) % Plt Count (150-450) K/mm3 MPV (7.5-11.0) fl Gran % (36.0-66.0) % Eos # (Auto) (0-0.5) Absolute Lymphs (auto) (1.0-4.6) Absolute Monos (auto) (0.0-1.3) Lymphocytes % (24.0-44.0) % Monocytes % (0.0-12.0) % Eosinophils % (0.00-5.0) % Basophils % (0.0-0.4) % Absolute Granulocytes (1.4-6.9) Basophils # (0-0.4) Sodium (137-145) mmol/L Potassium (3.5-5.1) mmol/L Chloride (98-107) mmol/L Carbon Dioxide (22-30) mmol/L Anion Gap (5-15) MEQ/L BUN (7-17) mg/dL Creatinine (0.52-1.04) mg/dL Estimated GFR ML/MIN Glucose (74-106) mg/dL Calcium (8.4-10.2) mg/dL Total Bilirubin (0.2-1.3) mg/dL AST (14-36) U/L ALT (0-35) U/L Alkaline Phosphatase (38-126) U/L Serum Total Protein (6.3-8.2) g/dL Albumin (3.5-5.0) g/dL Lipase (23-300) U/L Urinalys Dipstick Clnc Urine Color (YELLOW) Urine Appearance (CLEAR) Urine pH (5-6) Ur Specific [place] (1.005-1.025) POC Urine Protein Conf (Negative) Urine Ketones (NEGATIVE) Urine Nitrite (NEGATIVE) Urine Bilirubin (NEGATIVE) Urine Urobilinogen (0-1) mg/dL Urine Leukocytes (NEGATIVE) Urine WBC (Auto) (0-5) /HPF Urine RBC (Auto) (0-2) /HPF U Epithel Cells (Auto) (FEW) /HPF Urine Bacteria (Auto) (NEGATIVE) /HPF Urine RBC (0-5) Bakari/ul Ur Culture Indicated? Urine Glucose (NEGATIVE) mg/dL Urine HCG, Qual NEGATIVE (Negative) - Progress Progress: improved Progress Note: 03/07/22 20:25 41-year-old male evaluated for right-sided pain, given fluid bolus, recommended IV pain medication which she refused as her pain is almost completely resolved before taking medication. Work-up showed normal white count, mild dehydration otherwise unremarkable chemistries. No UTI. CT did show 5 mm right UVJ stone with hydroureter hydronephrosis. I have given her Flomax and will give her pain medications to go home and outpatient urology follow-up. I believe patient would probably passed stone on her own. Discussed with patient about signs symptoms of obstructive uropathy needing return to ER which she seems understanding. Counseled pt/family regarding: lab results, diagnosis, need for follow-up, rad results - Departure Departure Disposition: Home Clinical Impression: Ureterolithiasis Condition: Stable Critical Care Time: No Referrals: YAMINI HARRIS [Primary Care Provider] - Follow up/PCP as directed (1-2 days for reevaluation) TYRELL RITCHIE [COURTESY STAFF] - Follow up/PCP as directed (Call tomorrow for appointment) Instructions: Kidney Stones (DC) Additional Instructions: Drink plenty of fluids. Take pain medications as needed. Follow-up with primary care and urology for reevaluation. Return to ER for intractable pain, vomiting, fever chills, difficulty urination/blood in the urine etc. Strain y our urine. Prescriptions: Hydrocodone/Acetaminophen [Hydrocodone-Acetamin 5-325 mg] 1 tab PO Q6HPRN PRN 3 Days #12 tablet MDD 4 PRN Reason: Pain Tamsulosin HCl 0.4 mg [Flomax 0.4 MG] 0.4 mg PO DAILY #30 cap
[2022-03-07] MEDS ORDERED: Sodium Chloride 0.9% 1000 ML 1,000 ML ONE (18:47)
[2022-03-07] MEDS ORDERED: Zofran 4 MG/2 ML VIAL ONE (18:47)
[2022-03-07] MEDS ORDERED: MORPHINE SULFATE 4 MG INJ ONE (18:47)
[2022-03-07] MEDS: Zofran 4 MG/2 ML VIAL IV ONE ×2 (18:48→20:40)
[2022-03-07] MEDS: MORPHINE SULFATE 4 MG INJ IV ONE ×2 (18:49→20:40)
[2022-03-07] MEDS ORDERED: TORAdol 30 mg Injection ONE (18:50)
[2022-03-07] MEDS: TORAdol 30 mg Injection IV ONE ×2 (18:51→20:40)
[2022-03-07 19:30] LABS: Absolute Neutrophil Ct (ANC) 7.22 (1.4-6.9); Basophil (Absolute #) 0.03 (0-0.4); Eosinophil % 1.9 % (0.00-5.0); Eosinophil (Absolute #) 0.17 (0-0.5); Hematocrit 46.5 % (35-47); Hemoglobin 15.6 gm/dl (12.0-16.0); Lymphocytes % 10.2 % (24.0-44.0); Mean Cell Volume 92.8 fl (78-100); Mean Corpuscular Hemoglobin 31.1 pg (26-32); Mean Corpuscular Hgb Concent. 33.5 g/dl (32-36); Mean Platelet Volume 10.5 fl (7.5-11.0); Monocyte (Absolute #) 0.47 (0.0-1.3); Monocytes % 5.3 % (0.0-12.0); Neutrophil % 82.3 % (36.0-66.0); Platelet Count 192 K/mm3 (150-450); Red Blood Count 5.01 M/mm3 (4.1-5.4); Red Cell Distribution Width 13.3 % (11.5-14.0); White Blood Count 8.8 K/mm3 (4.0-10.5)
[2022-03-07 19:35] LABS: ALBUMIN 4.5 g/dL (3.5-5.0); ALKALINE PHOSPHATASE 45 U/L (38-126); ANION GAP 16.1 MEQ/L (5-15); BLOOD UREA NITROGEN 14 mg/dL (7-17); CHLORIDE 109 mmol/L (98-107); Calcium 9.3 mg/dL (8.4-10.2); Carbon Dioxide 19 mmol/L (22-30); EST GLOMERULAR FILTRATION RATE > 60.0 ML/MIN; Glucose 127 mg/dL (74-106); LIPASE 197 U/L (23-300); Potassium 4.1 mmol/L (3.5-5.1); SGOT/AST 27 U/L (14-36); SGPT/ALT 14 U/L (0-35); SODIUM 140 mmol/L (137-145); Total Protein 7.6 g/dL (6.3-8.2)
[2022-03-07 19:42] LABS: Appearance CLOUDY (CLEAR); Bacteria FEW /HPF (NEGATIVE); Epithelial Cells RARE /HPF (FEW); Glucose NEGATIVE (NEGATIVE); RBC 0-2 /HPF (0-2)
[2022-03-07 19:43] LABS: Bilirubin NEGATIVE (NEGATIVE); Ketones NEGATIVE (NEGATIVE); Nitrite NEGATIVE (NEGATIVE); Ph 7.5 (5-6); Protein,Urine Dip TRACE (Negative); RBC NEGATIVE Ery/ul (0-5); Urine Cultured Indicated? NO; Urobilinogen 0.2 mg/dL (0-1)
[2022-03-07] MEDS ORDERED: Flomax 0.4 MG PO STA (20:26)
[2022-03-07] MEDS ORDERED: NORCO 5/325 MG PO ONE (20:26)
[2022-03-07 20:41] LABS: Dipstick done @ ? MAIN LAB
[2022-03-07] MEDS ORDERED: Flomax 0.4 MG ONE (20:41)
[2022-03-07] MEDS ORDERED: NORCO 5/325 MG ONE (20:42)
[2022-03-07 20:45] VITALS: BP 103/53; PULSE 52; O2SAT 98
--- NOTE | 2022-03-08 08:43 | XRAY ---
Indication: Right flank/right lower quadrant pain. Multiple contiguous axial images obtained through the abdomen and pelvis without contrast using renal stone protocol. Comparison: None Lung bases clear. Heart not enlarged. There is a 5 mm right UVJ calculus. Proximal right ureter is distended up to 1.2 cm along with moderate hydronephrosis favoring obstructive uropathy. No perinephric stranding/fluid. Inferior right renal calyx demonstrates 2 additional 5 mm calculi. No renal calculus or evidence for obstructive uropathy on the left. Partial hysterectomy and cholecystectomy reported. Small pelvic free fluid presumed physiologic from rupture/leaking cyst. No free air. Noncontrasted stomach and bowel loops appear nonobstructed with normal appendix. Remaining liver, pancreas, spleen, adrenal glands, kidneys, ureters, bladder, and aorta are unremarkable for noncontrast exam. Osseous structures intact. No ventral or inguinal hernias. Impression: 1. 5 mm right UVJ calculus producing obstructive uropathy as detailed. 2 additional right renal micro-calculi. 2. Small pelvic free fluid presumed physiologic from rupture/leaking cyst. 3. Remaining CT abdomen/pelvis without contrast exam is negative.
== END 2022-03-07 20:50 | disposition home or self-care (01) ==
LOC: ED 18:11
DX: N13.2 Hydronephrosis with renal and ureteral calculous obstruction (principal); R10.31 Right lower quadrant pain; R11.2 Nausea with vomiting, unspecified; Z79.891 Long term (current) use of opiate analgesic; Z79.899 Other long term (current) drug therapy
CPT/HCPCS: 36000; 36415; 74176; 80053; 81015; 83690; 84703; 85025; 99284; J1885; J2270; J2405; A9270-GY